=== PATIENT | male | born 1980 | race American Indian/Alaskan Native ===

== ENCOUNTER 2020-08-11 10:57 | Outpatient (CLI) | payer OTHER ==
--- NOTE | 2020-08-11 12:09 | XRay Report ---
LEFT KNEE 3 VIEWS INDICATION / CLINICAL INFORMATION: KNEE PAIN. COMPARISON: None available. FINDINGS: A cylindrical area of high density is seen in the lateral femoral condyle. Has the patient had prior surgery in this area No other significant skeletal abnormality Signer Name: Madhav Flower MD FACR Signed: 08/11/2020 12:05 PM Workstation Name: [email or web address]
== END 2020-08-11 10:58 | disposition home or self-care (01) ==
LOC: EDBD 10:57 → XRAY 10:57
PROVIDERS: ATTEND Internal Medicine
DX: M85.862 Other specified disorders of bone density and structure, left lower leg (principal)